=== PATIENT | female | born 1990 | race Caucasian/White ===

== ENCOUNTER 2016-07-18 12:34 | Emergency (ER) | payer BC, OTHER ==
[~2016-07-18] VITALS: Ht 167.6 cm; Wt 61.2 kg
[2016-07-18 13:03] VITALS: BP 123/85
[2016-07-18] MEDS ORDERED: HYDROmorphone HCL 2 MG/ML VL IM ONE (13:15)
[2016-07-18] MEDS ORDERED: ONDANSETRON HCL 4 MG/2 ML VIAL IM ONE (13:15)
[2016-07-18] MEDS ORDERED: METHOCARBAMOL 500 MG TAB PO ONE (13:15)
== END 2016-07-18 14:46 | disposition home or self-care (01) ==
LOC: ER 12:34
DX: S16.1XXA Strain of muscle, fascia and tendon at neck level, initial encounter (principal); S09.8XXA Other specified injuries of head, initial encounter; Z88.0 Allergy status to penicillin; V00.131A Fall from skateboard, initial encounter; Y93.51 Activity, roller skating (inline) and skateboarding; Y99.8 Other external cause status; Y92.89 Other specified places as the place of occurrence of the external cause
CPT/HCPCS: 70450; 72125; 96372; 99284; J1170; J2405